=== PATIENT | female | born 1965 | race Caucasian/White ===

== ENCOUNTER 2017-04-29 05:33 | Day surgery (SDC) | payer OTHER ==
[~2017-04-29] VITALS: Ht 172.7 cm; Wt 72.6 kg
--- NOTE | ~2017-04-29 | S ---
[facility] [place] [address] SURGICAL PATH RPT PROCEDURE Name: NEGRITA MATTHEWS Room #: DEP [facility] M.R.#: [id number] Admission: 04/29/17 Date of : 63 Discharge: 04/29/17 Report #: [id number] Path Case #: [id number] PATHOLOGY REPORT COLLECTION DATE: 04/29/2017 RECEIVED DATE: 04/29/2017 SUBMITTING PHYS: Dr. Den Reid OTHER PHYS: Dr. Wang SPECIMEN(S) RECEIVED: A.Right palate lesion, question hpv * * * * * * * * * * * * FINAL DIAGNOSIS: Squamous mucosa, right palate lesion, biopsy: - Consistent with a squamous papilloma. - Negative for dysplasia. COMMENT: Co-review: Dr. Mone Bob (IUV:mgr; 05/02/2017) PATHOLOGIST: Denisha Corona M.D. REPORT ELECTRONICALLY SIGNED BY: Denisha Corona M.D. DATE/TIME: 05/02/2017 17:29 * * * * * * * * * * * * GROSS PATHOLOGY: The specimen is received in formalin labeled "Negrita Huang, right palate lesion". Received is a segment of pale rojas papillary-appearing mucosa measuring 0.4 cm in maximum dimensions. The specimen is submitted entirely in cassette A1. (CAA; 04/30/2017) CLINICAL HISTORY: Right palate lesion, question HPV INITIAL CPT CODE(S): A; 27773 Professional services performed by [facility] at [facility] [address] [place] [address] Technical services performed by [facility] at [address] [place] [id number]. [facility] [address] [place] [address] SURGICAL PATH RPT PROCEDURE Name: NEGRITA MATTHEWS Room #: DEP [facility] Loida#: [id number] Admission: 04/29/17 Date of : 63 Discharge: 04/29/17 Report #: [id number] Path Case #: [id number] [address] PHONE: [phone] DIRECTOR: Steven Kaur M.D. * * * END OF REPORT * * *
--- NOTE | ~2017-04-29 | O ---
[facility] [place] [address] OPERATIVE REPORT Name: AZUCENA MATTHEWS Room #: 150-7 [facility].R.#: [id number] Admission: 04/29/17 Attend Phys: Den Reid MD Discharge: Date of : 63 Report #: [id number] THIS REPORT FOR: //name// CC: Den Fenton DATE OF SERVICE: 04/29/2017 PREOPERATIVE DIAGNOSIS: Right anterior tonsillar pillar lesion. POSTOPERATIVE DIAGNOSIS: Pathology pending. PROCEDURE: Excision of soft palate lesion. SURGEON: Den Reid MD. ANESTHESIA: General endotracheal. INDICATIONS: See H and P. FINDINGS: There is an exophytic, somewhat verrucoid-appearing 4 mm to 5 mm mass on the inferior aspect of the free edge of the right anterior tonsillar pillar. TECHNIQUE: After obtaining consent, she was brought to the operating suite. Appropriate time-out was performed. General anesthesia was obtained. The bed was turned 90 degrees. Neck was placed in an hyperextended position. A large slotted McIvor mouth gag was used to open the oral cavity suspended from Patel stand. The mass was identified visually. I injected 1 mL of 1% Xylocaine and 1:100,000 epinephrine on the anterior tonsillar pillar, just lateral to the mass. The mass was grasped with pickups and then using electrocautery on a setting of 12 coagulation with a needlepoint cautery, I excised around the mass including a small portion of the tonsillar pillar itself. Mass was delivered in toto and will be sent for permanent pathology and possible HPV testing. Hemostasis was easily obtained with the use of the cautery. After waiting a minute or two, the mouth gag was removed. There was no active bleeding. She was allowed to awaken from anesthesia and taken to recovery in stable condition. ESTIMATED BLOOD LOSS: Scant. By: [id number] Den Reid MD /nt
--- NOTE | ~2017-04-29 | H ---
[facility] [place] [address] [place] [address] HISTORY AND PHYSICAL Name: AZUCENA MATTHEWS Room #: 150-7 [facility] M.R.#: [id number] Admission: 04/29/17 Attend Phys: Den Reid MD Discharge: Date of : 63 Report #: [id number] THIS REPORT FOR: //name// CC: FAM unknown Den Reid ANTICIPATED DATE OF SURGERY: 04/29/2017. CHIEF COMPLAINT: Oropharyngeal lesion. HISTORY OF PRESENT ILLNESS: The patient is a 52-year-old female presented with an oral lesion found by her dentist and she has no symptoms associated with the lesion. Physical examination does demonstrate that there is a small somewhat 3 mm exudative papillomatous growth on the medial edge of the very right inferior-anterior tonsillar pillar. No other abnormalities were noted. Based on the location and side, I did recommend removal pathological diagnosis. We discussed possibility under local anesthetic in the office pursue general anesthetic while she chose the later. ALLERGIES TO MEDICATION: None. MEDICATIONS ON ADMISSION: Include levothyroxine 88 mcg a day, venlafaxine extended release 75 mg once a day and exemestane 25 mg once a day. PAST MEDICAL AND SURGICAL HISTORY: Notable for previous hypothyroidism, MRSA . FAMILY HISTORY: Noncontributory. REVIEW OF SYSTEMS: Presently negative for any GI, , cardiovascular and pulmonary issues. PHYSICAL EXAMINATION: VITAL SIGNS: Height 5 feet 8 inches, weight 165 pounds and blood pressure 111/68. HEENT: As noted above within the oropharynx. Dentition is normal. The remainder of the oropharyngeal exam is unremarkable. Nares are patent. NECK: Normal to palpation. CHEST: Clear. CARDIOVASCULAR: Regular rate and regular rhythm. ASSESSMENT: History of papillomatous lesion, right anterior tonsillar pillar inferior surface near posterior tongue. [facility] [address] [place] [address] HISTORY AND PHYSICAL Name: AZUCENA MATTHEWS Room #: 150-7 [facility]..#: [id number] Admission: 04/29/17 Attend Phys: Den Reid MD Discharge: Date of : 63 Report #: [id number] PLAN: Will be for excisional biopsy under anesthesia. <ELECTRONICALLY SIGNED> By: Den Reid MD 04/29/17 0927 22 [id number] Den Reid MD /nt
[~2017-04-29 05:33] MED LIST: ALENDRONATE SOD70 MG PO; AROMASIN25 MG PO; ASPIR 8181 MG PO; LEVOTHYROXIN0.088 MG PO; MULTIVITAMINS PO; VENLAFAXIN75 MG/1 T2 PO; VITAMIN B COMP1 EACH PO
[2017-04-29 11:30] VITALS: BP 108/66
== END 2017-04-29 12:45 | disposition home or self-care (01) ==
LOC: OR 05:33 → TBA 05:33 → OR 09:27
DX: D10.39 Benign neoplasm of other parts of mouth (principal)
CPT/HCPCS: 50010; 50101; 50386; 50398; 56528; 62110; 62900; 70005